=== PATIENT | male | born 1985 | race African-American/Black ===

== ENCOUNTER 2022-07-10 00:25 | Outpatient (CLI) | payer MEDICAID, SELFPAY | END 2022-07-10 00:26 | disposition home or self-care (01) | LOC: AMB 08-10 19:45 | PROVIDERS: Visit Provider Family Medicine | DX: S29.9XXA Unspecified injury of thorax, initial encounter (principal); V59.3XXA Occupant (driver) (passenger) of pick-up truck or van injured in unspecified nontraffic accident, initial encounter; Y92.415 Exit ramp or entrance ramp of street or highway as the place of occurrence of the external cause | CPT/HCPCS: A0425; A0427 ==